=== PATIENT | female | born 1990 | race Hispanic/Latino ===

== ENCOUNTER 2017-10-16 23:19 | Emergency (ER) | payer SELFPAY ==
[2017-10-16 23:20] VITALS: BMI 27.4
[2017-10-16 23:45] VITALS: BP 151/90; PULSE 93; RESP 18; TEMP 98.1; O2SAT 100
[2017-10-17] MEDS ORDERED: Sodium Chloride 0.9% 500 ML IV STA (00:21)
[2017-10-17 01:18] LABS: URINE BILIRUBIN NEGATIVE (NEGATIVE); URINE BLOOD NEGATIVE (NEGATIVE); URINE GLUCOSE (UA) NEGATIVE (NEGATIVE); URINE LEUKOCYTE ESTERASE NEGATIVE Leu/uL (NEGATIVE); URINE NITRATE NEGATIVE (NEGATIVE); URINE PROTEIN NEGATIVE mg/dL (<30 mg/dL); URINE UROBILINOGEN 0.2 E.U./dL (<1 E.U./dL)
[2017-10-17 01:26] LABS: BASO # 0.04 K/mm3 (0.0-2.0); BASO % 0.4 % (0.0-3.0); EOS # 0.3 (0.0-0.7); EOS % 2.7 % (1.5-5.0); GRAN # 7.31 (1.4-6.5); GRAN % 69.5 % (50.0-68.0); HEMOGLOBIN 14.2 g/dL (12.0-16.0); LYMPH # 2.1 (1.2-3.4); LYMPH % 20.2 % (22.0-35.0); MEAN CELL VOLUME 88.3 fl (80.0-105.0); MEAN CORPUSCULAR HEMOGLOBIN 29.7 pg (25.0-35.0); MEAN CORPUSCULAR HGB CONC 33.6 g/dl (31.0-37.0); MEAN PLATELET VOLUME 10.5 fl (7.0-11.0); MONO # 0.8 (0.1-0.6); MONO % 7.2 % (1.0-6.0); RBC 4.78 10^6/uL (3.5-6.1); RED CELL DISTRIBUTION WIDTH 13.3 % (11.5-14.5); WHITE BLOOD COUNT 10.5 10^3/ul (4.5-11.0)
--- NOTE | 2017-10-17 01:30 | US ---
EXAM: US Abdomen Complete CLINICAL HISTORY: 27 years old, female; Pain; Abdominal pain; Epigastric; Additional info: Epigastric pain TECHNIQUE: Real-time ultrasound of the abdomen (complete) with image documentation. COMPARISON: No relevant prior studies available. FINDINGS: Liver: Normal echogenicity. No mass. No intrahepatic bile duct dilatation. Gallbladder: Gallstones. No wall thickening. No pericholecystic fluid. No sonographic Vega's sign. Common bile duct: No dilatation. No stones. Pancreas: Unremarkable as visualized. Kidneys: Normal echogenicity. No hydronephrosis. Spleen: No splenomegaly. Aorta: Obscured by overlying bowel gas. Inferior vena cava: Unremarkable. Free fluid: No significant free fluid. IMPRESSION: 1. Cholelithiasis.
[2017-10-17 01:32] LABS: ALBUMIN 4.9 g/dL (3.0-4.8); ALT/SGPT 103 U/L (7-56); AST/SGOT 128 U/L (14-36); BLOOD UREA NITROGEN 10 mg/dL (7-21); CALCIUM 10.1 mg/dL (8.4-10.5); GFR AFRICAN-AMERICAN > 60; GFR NON-AFRICAN AMERICAN > 60; LIPASE 199 U/L (23-300)
[2017-10-17 01:32] LABS: URINE APPEARANCE CLEAR (CLEAR); URINE COLOR YELLOW (YELLOW)
--- NOTE | 2017-10-17 01:32 | ED PDOC ---
Arrival/HPI <Cheikh Chand - Last Filed: 10/17/17 02:07> - General Historian: Patient <Angela Rico PA-C - Last Filed: 10/17/17 02:11> - General Chief Complaint: Chest Pain Time Seen by Provider: 10/16/17 23:54 - History of Present Illness Narrative History of Present Illness (Text): 10/17/17 01:33 27 yo F otherwise healthy, c/o non-radiating epigastric pain which started tonight. Reports having had at least 5 episodes of similar symptoms x 1 month. Reports prior similar symptoms would last for a few minutes and resolve spontaneously, they typically occur late at night, hours after eating. Tonight however her symptoms are more intense, have persisted for the past 1/2 hour, unrelieved, prompting ER visit. Otherwise: (-) urinary symptoms, (-) CP, (-) SOB , (-) diarrhea, (-) fever, (-) melena, (-) hematochezia. Has no history of prior abdominal surgery. PMD none (Angela Rico PA-C) Past Medical History - Provider Review Nursing Documentation Reviewed: Yes - Infectious Disease Hx of Infectious Diseases: None - Tetanus Immunization Tetanus Immunization: Up to Date - Psychiatric Hx Depression: No Hx Emotional Abuse: No Hx Physical Abuse: No Hx Substance Use: No - Past Surgical History Past Surgical History: Non-Contributing - Suicidal Assessment Feels Threatened In Home Enviroment: No <Angela Rico PA-C - Last Filed: 10/17/17 02:11> Family/Social History - Physician Review Nursing Documentation Reviewed: Yes Family/Social History: Hypertension, Other (asthma) Smoking Status: Light Smoker < 10 Cigarettes Daily Hx Alcohol Use: Yes Frequency of alcohol use: Socially Hx Substance Use: No Hx Substance Use Treatment: No <Angela Rico PA-C - Last Filed: 10/17/17 02:11> Allergies/Home Meds <Cheikh Chand - Last Filed: 10/17/17 02:07> <Angela Rico PA-C - Last Filed: 10/17/17 02:11> Allergies/Adverse Reactions: Allergies No Known Allergies Allergy (Verified 10/16/17 23:35) Home Medications: Home Meds Medication Instructions Recorded Confirmed No Known Home Med [No Known Home 08/27/13 10/16/17 Med] Review of Systems - Review of Systems Constitutional: absent: Fatigue, Weight Change, Fevers Respiratory: absent: SOB, Cough, Sputum Cardiovascular: absent: Chest Pain, Palpitations, Edema Gastrointestinal: Abdominal Pain. absent: Nausea, Vomiting Genitourinary Female: absent: Dysuria, Frequency, Hematuria Musculoskeletal: absent: Arthralgias, Back Pain, Neck Pain Skin: absent: Rash, Pruritis, Skin Lesions Neurological: absent: Headache, Dizziness, Focal Weakness <Angela Rico PA-C - Last Filed: 10/17/17 02:11> Physical Exam <Cheikh Chand - Last Filed: 10/17/17 02:07> <Angela Rico PA-C - Last Filed: 10/17/17 02:11> - Physical Exam Narrative Physical Exam (Text): 10/17/17 01:30 GENERAL APPEARANCE: Patient is awake, alert, sitting up comfortably, oriented x 3, in no distress. SKIN: Warm, dry; (-) cyanosis. EYES: (-) conjunctival pallor, (-) scleral icterus. ENMT: Mucous membranes moist. NECK: (-) tenderness, (-) stiffness, (-) lymphadenopathy. CHEST AND RESPIRATORY: (-) rales, (-) rhonchi, (-) wheezes; breath sounds equal bilaterally. HEART AND CARDIOVASCULAR: (-) irregularity; (-) murmur, (-) gallop. ABDOMEN AND GI: (-) distention. Bowel sounds active; (-) tenderness, (-) Vega's sign, () guarding, (-) rebound, (-) palpable masses, (-) CVA tenderness. EXTREMITIES: (-) deformity, (-) edema, (+) distal pulses. NEURO AND PSYCH: Mental status as above; (-) focal findings. (Angela Rico PA-C) Vital Signs Temp Pulse Resp BP Pulse Ox 10/16/17 23:44 98.1 F 93 H 18 151/90 H 100 Medical Decision Making <Cheikh Chand - Last Filed: 10/17/17 02:07> - Lab Interpretations I have reviewed the lab results: Yes <Angela Rico PA-C - Last Filed: 10/17/17 02:11> ED Course and Treatment: 10/17/17 01:29 27 yo F otherwise healthy, c/o epigastric pain which started tonight. Reports having had at least 5 episodes of similar symptoms x 1 month. Plan: -- Labs -- IV fluids -- Urinalysis -- EKG -- CXR -- Pepcid / Zofran -- Reassess and disposition -- US ABD EKG : NSR at 79 bpm, (-) acute ST changes, as read by MARY. CXR : NAD, as read by PA Lab results reviewed : LFTs mildly elevated, WBC, T bili, lipase, Alk phos wnl. Ultrasound abdomen reveals cholelithiasis with no evidence of acute cholecystitis. Diagnostic results discussed the patient in great detail. On reevaluation, patient is resting comfortably in bed, reports significant improvement of pain. On exam, abdomen remains soft, with tenderness to deep palpation, no guarding, no rebound. Based on history, exam and diagnostic results plan will be for outpatient follow-up. Diagnosis of gallstones discussed with the patient in great detail. Instructed to follow up with referral provided in 1-2 days without fail. Return to the emergency room at any time for any new or worsening symptoms. Patient states she fully agrees with and understands discharge instructions. States that she agrees with the plan and disposition. Verbalized and repeated discharge instructions and plan. I have given the patient opportunity to ask any additional questions. (Jacky COLLAZO,Angela Cat) - Lab Interpretations Lab Results: 10/17/17 00:45 10/17/17 00:45 Lab Results 10/17/17 01:07: Urine Color Yellow, Urine Appearance Clear, Urine pH 8.0, Ur Specific [place] 1.015, Urine Protein Negative, Urine Glucose (UA) Negative, Urine Ketones Negative, Urine Blood Negative, Urine Nitrate Negative, Urine Bilirubin Negative, Urine Urobilinogen 0.2, Ur Leukocyte Esterase Negative 10/17/17 00:45: Sodium 143, Potassium 3.7, Chloride 105, Carbon Dioxide 25, Anion Gap 17, BUN 10, Creatinine 0.7, Est GFR ( Amer) > 60, Est GFR (Non- Af Amer) > 60, Random Glucose 115 H, Calcium 10.1, Total Bilirubin 0.6, AST 128 H, ALT 103 H, Alkaline Phosphatase 112, Total Protein 8.2, Albumin 4.9 H, Globulin 3.3, Albumin/Globulin Ratio 1.5, Lipase 199 10/17/17 00:45: PT 10.9, INR 1.00, APTT 29.2 10/17/17 00:45: WBC 10.5, RBC 4.78, Hgb 14.2, Hct 42.2, MCV 88.3, MCH 29.7, MCHC 33.6, RDW 13.3, Plt Count 245, MPV 10.5, Gran % 69.5 H, Lymph % (Auto) 20.2 L, [place] % (Auto) 7.2 H, Eos % (Auto) 2.7, Baso % (Auto) 0.4, Gran # 7.31 H , Lymph # 2.1, [place] # 0.8 H, Eos # 0.3, Baso # 0.04 - RAD Interpretation Narrative RAD Interpretations (Text): 10/17/17 01:37 US abdomen : FINDINGS: Liver: Normal echogenicity. No mass. No intrahepatic bile duct dilatation. Gallbladder: Gallstones. No wall thickening. No pericholecystic fluid. No sonographic Vega's sign. Common bile duct: No dilatation. No stones. Pancreas: Unremarkable as visualized. Kidneys: Normal echogenicity. No hydronephrosis. Spleen: No splenomegaly. Aorta: Obscured by overlying bowel gas. Inferior vena cava: Unremarkable. Free fluid: No significant free fluid. IMPRESSION: 1. Cholelithiasis. Dictated and Authenticated by: Kane Gonzalez MD 10/17/2017 1:29 AM Eastern Time ([place] & [place]) (Jacky COLLAZO,Angela Cat) Radiology Orders: 10/17/17 00:21 CHEST PORTABLE [RAD] Stat ABDOMEN COMPLETE [US] Stat - Medication Orders Current Medication Orders: Discontinued Medications Famotidine (Pepcid) 20 mg IVP STAT STA Stop: 10/17/17 00:22 Sodium Chloride (Sodium Chloride 0.9%) 500 mls @ 1,000 mls/hr IV .Q30M STA Stop: 10/17/17 00:50 Ondansetron HCl (Zofran Inj) 4 mg IVP STAT STA Stop: 10/17/17 00:22 - PA / BUSINESS ADMINISTRATION PROGRAM CHAIR / Resident Statement BOBBY has reviewed & agrees with the documentation as recorded. BOBBY has examined the patient and agrees with the treatment plan. <Cheikh Chand - Last Filed: 10/17/17 02:07> - PA / BUSINESS ADMINISTRATION PROGRAM CHAIR / Resident Statement BOBBY has reviewed & agrees with the documentation as recorded. <Angela Rico PA-C - Last Filed: 10/17/17 02:11> Disposition/Present on Arrival <Cheikh Chand - Last Filed: 10/17/17 02:07> - Present on Arrival Any Indicators Present on Arrival: No History of DVT/PE: No History of Uncontrolled Diabetes: No Urinary Catheter: No History of Decub. Ulcer: No History Surgical Site Infection Following: None - Disposition Have Diagnosis and Disposition been Completed?: Yes Disposition Time: 02:00 Patient Plan: Discharge <Angela Rico PA-C - Last Filed: 10/17/17 02:11> - Disposition Diagnosis: Biliary colic Disposition: HOME/ ROUTINE Patient Problems: Current Active Problems Problem Status Onset Biliary colic Acute Condition: STABLE Discharge Instructions (ExitCare): Biliary Colic (ED) Print Language: BELARUSIAN Additional Instructions: Thank you for letting us take care of you today. You were treated for biliary colic. The emergency medical care you received today was directed at your acute symptoms. Return to the Emergency Department if your symptoms worsen, do not improve, or if you have any other problems. Please call one of the physicians/clinics you have been referred to that are listed on the Patient Visit Information form that is included in your discharge packet. Bring any paperwork you were given at discharge with you along with any medications you are taking to your follow up visit. Our treatment cannot replace ongoing medical care by a primary care provider (PCP) outside of the emergency department. Thank you for allowing the [facility] team to be part of your care today. Referrals: [facility] [place] - Follow up with primary Forms: [employer] (Indonesian), WORK NOTE
[2017-10-17 01:38] LABS: ALB/GLOB RATIO 1.5 (1.1-1.8); PARTIAL THROMBOPLASTIN TIME 29.2 Seconds (25.1-36.5); PROTHROMBIN TIME 10.9 SECONDS (9.4-12.5)
--- NOTE | 2017-10-17 08:39 | RAD ---
HISTORY: epigastric pain COMPARISON: No prior. FINDINGS: LUNGS: No active pulmonary disease. PLEURA: No significant pleural effusion identified, no pneumothorax apparent. CARDIOVASCULAR: Normal. OSSEOUS STRUCTURES: No significant abnormalities. VISUALIZED UPPER ABDOMEN: Normal. OTHER FINDINGS: None. IMPRESSION: No active disease.
--- NOTE | 2017-10-17 09:47 | CARD ---
APPROVED REPORT EKG Measurement Heart [id number] <Conclusion> Normal sinus rhythm with sinus arrhythmia Normal ECG
== END 2017-10-17 03:19 | disposition home or self-care (01) ==
LOC: ED 23:19 → UNDOADMIN 10-17 02:08 → ERH 10-17 02:08 → ED 10-17 03:19
DX: K80.50 Calculus of bile duct without cholangitis or cholecystitis without obstruction (principal)
CPT/HCPCS: 71045; 76700; 80053; 81003; 83690; 85025; 85610; 85730; 87086; 93005; 96374; 96375; 99283; J2405; J7040